=== PATIENT | female | born 1960 | race American Indian/Alaskan Native ===

== ENCOUNTER 2023-12-05 07:04 | Day surgery (SDC) | payer OTHER ==
[~2023-12-05] VITALS: Ht 162.6 cm; Wt 85.5 kg
[~2023-12-05 07:04] MED LIST: CEPHALEXIN500 M1 PO; NORCO 325 MG-51 TAB PO
[2023-12-05 08:35] VITALS: BP 144/96; PULSE 93; TEMP 98.1
[2023-12-05 10:15] VITALS: BP 160/97; PULSE 74; TEMP 97.6
[2023-12-05 10:30] VITALS: BP 161/95; PULSE 72
[2023-12-05 10:45] VITALS: BP 157/81; PULSE 68
--- NOTE | 2023-12-05 11:00 | NUR ---
1015 RETURNS TO ROOM 2 PER CART. AWAKE, ALERT. RESP UNLABORED. AMBULATES TO RECLINER WITH STANDBY ASSIST. DENIES NAUSEA, ABD/CHEST PAIN OR DYSPHAGIA. VITAL SIGNS OBTAINED. CALL LIGHT AT SIDE 1025 DR. HOLLAND HERE TO VISIT WITH PATIENT 10[address] JUICE WITHOUT NAUSEA. SWALLOWS WITHOUT DIFFICULTY 1042 DISCHARGE INSTRUCTIONS REVIEWED. PATIENT VERBALIZES UNDERSTANDING. COPY PROVIDED IN DISCHARGE FOLDER 1050 DRESSES SELF
== END 2023-12-05 11:00 | disposition home or self-care (01) ==
LOC: SDCO 07:04
DX: K29.51 Unspecified chronic gastritis with bleeding (principal); D12.2 Benign neoplasm of ascending colon; K59.00 Constipation, unspecified; K62.89 Other specified diseases of anus and rectum; K31.89 Other diseases of stomach and duodenum; E66.9 Obesity, unspecified; Z87.828 Personal history of other (healed) physical injury and trauma
CPT/HCPCS: J2704; J7120